=== PATIENT | male | born 1980 | race Caucasian/White ===

== ENCOUNTER 2023-06-03 17:54 | Emergency (ER) | payer SELFPAY ==
--- NOTE | ~2023-06-03 | XR_ITS ---
EXAMINATION: XR toe 4th LT min 2V DATE: 06/03/2023 19:30 INDICATION: Wound to the left fourth toe TECHNIQUE: Dorsal plantar, lateral and 2 oblique views of the left fourth toe were obtained. COMPARISON: None FINDINGS: Alignment is normal. No fracture. There are some flattening of the articular surface at the head of t he second metatarsal without underlying sclerosis or lucency suggestive of chronic osteonecrosis (Rick iberg's infraction). Mild osteoarthritis at the first metatarsophalangeal and a few interphalangeal j oints. Mild soft tissue swelling over the dorsum of the forefoot.. No soft tissue gas or radiopaque f oreign bodies. IMPRESSION: No acute osseous abnormality, soft tissue gas or radiopaque foreign bodies. Reviewed, dictated and finalized at location A.
[2023-06-03 18:03] VITALS: BP 168/105; PULSE 100; RESP 18; TEMP 36.9; O2SAT 100
--- NOTE | 2023-06-03 19:05 | ED.MALEGU ---
HPI - Male Genitourinary General Chief complaint: Urogenital-Male Stated complaint: need a catheter/poison july/ toe wound Time Seen by Provider: 06/03/23 18:35 Source: patient Mode of arrival: ambulatory Limitations: no limitations History of Present Illness HPI Narrative: This is a 43 year old male that presents to the ER with multiple complaints. Reports an itchy rash present on his arms and chest. Reports contact with poison july. He has been using calamine lotion and taking Benadryl with little relief. This has been present over the last week or so. Also reports history of neurogenic bladder. Reports he intermittently needs to straight cath and that he does not have any straight caths currently. He is requesting one. Also reports a wound to the left 4th toe with some redness and swelling surrounding. Denies fevers or drainage. Related Data Allergies Allergy/AdvReac Type Severity Reaction Status Date / Time No Known Allergies Allergy Verified 06/03/23 18:06 Review of Systems Review of Systems: CONSTITUTIONAL: Denies fever GASTROINTESTINAL: Denies abdominal pain, nausea, vomiting SKIN: Reports redness and swelling All systems reviewed & are unremarkable except as noted in HPI and below PMFSH Past Medical History Medical History (Updated 06/03/23 @ 21:13 by Jaylyn Chand PA-C) History of hypertension History of neurogenic bladder Social History Social History (Updated 06/03/23 @ 19:12 by Jaylyn Chand PA-C) Substance use: never Exam Narrative: GENERAL: Well-appearing, well-nourished, and in no acute distress. HEAD: Normocephalic, atraumatic. EYES: EOMI. CHEST: No respiratory distress. HEART: Regular rate EXTREMITIES: Normal range of motion. No edema. SKIN: Warm, dry. Papular, dry, red patches with excoriation to the bilateral arms and chest. Left 4th toe with very small ulceration with mild surrounding redness NEURO: No focal deficits. Alert and oriented x3. PSYCH: Normal mood and affect Course Course Emergency Course: Patient updated on work-up and agrees with plan of care Vital Signs Vital signs: Vital Signs Temperature 98.4 F 06/03/23 18:03 Pulse Rate 100 06/03/23 18:03 Respiratory Rate 18 06/03/23 18:03 Blood Pressure 168/105 H 06/03/23 18:03 Pulse Oximetry 100 06/03/23 18:03 Temperature 98.4 F 06/03/23 18:03 Pulse Rate 100 06/03/23 18:03 Respiratory Rate 18 06/03/23 18:03 Blood Pressure 168/105 H 06/03/23 18:03 Pulse Oximetry 100 06/03/23 18:03 MDM - Male Genitourinary MDM Narrative Medical decision making narrative: Patient presents to the emergency department for multiple complaints. Reports history of neurogenic bladder. Reports he ran out of his straight caths. Requesting one. Also reporting contact dermatitis due to poison july. Reporting a red, swollen toe. Patient instructed on further use of antihistamines for his contact dermatitis. Will also be started on a steroid taper as he is quite uncomfortable. Possible mild cellulitis to the left fourth toe. No concerning findings on x-ray or laboratory evaluation. Instructed to keep the wound clean and dry and apply antibiotic ointment. Will be started on an oral antibiotic as well. He does not have a straight cath as well. He is to follow-up with primary provider. He was given warnings to return to the ER Differential Diagnosis Differential diagnosis: Likely other (Neurogenic bladder, contact dermatitis, cellulitis) Lab Data Attestation: I reviewed the patient's lab results. 06/03/23 19:39 06/03/23 19:39 Labs: Lab Results 06/03/23 Range/Units 19:39 WBC 5.9 (4.5-10.0) K/mm3 RBC 4.84 (4.6-6.20) M/mm3 Hgb 14.9 (14.0-18.0) g/dL Hct 45.1 (42.0-52.0) % MCV 93.2 (80-100) fl MCH 30.8 (26-34) pg MCHC 33.0 (32-36) g/dl RDW 14.8 H (11.5-14.5) % Plt Count 301 (150-375) k/mm3 MPV 9.6 (7.4-10.4) fl Immature Gran
[2023-06-03 19:47] LABS: Basophils Absolute Auto 0.1 K/mm3 (0.0-0.1); Basophils Percent Auto 0.8 % (0.2-1.2); Eosinophils Absolute Auto 0.4 K/mm3 (0-0.3); Eosinophils Percent Auto 6.7 % (0-4.4); Hematocrit 45.1 % (42.0-52.0); Hemoglobin 14.9 g/dL (14.0-18.0); Immature Granulocyte Absolute 0.01 K/mm3 (0.00-0.031); Immature Granulocyte Percent A 0.2 % (0-0.5); Lymphocytes Absolute Auto 2.22 K/mm3 (0.9-3.2); Lymphocytes Percent Auto 37.4 % (18.3-44.2); Mean Corpuscular Hemoglobin 30.8 pg (26-34); Mean Corpuscular Volume 93.2 fl (80-100); Mean Platelet Volume 9.6 fl (7.4-10.4); Monocytes Absolute Auto 0.6 K/mm3 (0.1-0.6); Monocytes Percent Auto 9.4 % (2.6-8.5); Neutrophils Absolute Auto 2.7 K/mm3 (1.3-6.7); Neutrophils Percent Auto 45.5 % (45.5-73.1); Platelet Count Result 301 k/mm3 (150-375); Red Blood Count 4.84 M/mm3 (4.6-6.20); Red Cell Distribution Width 14.8 % (11.5-14.5); White Blood Count 5.9 K/mm3 (4.5-10.0)
[2023-06-03 20:01] LABS: Anion Gap 5 mmol/L (8-16); Blood Urea Nitrogen 21 mg/dL (9-20); CRP 0.7 mg/dL (<1.0); Calcium 9.9 mg/dL (8.4-10.2); Carbon Dioxide 28 mmol/L (22-30); Chloride 106 mmol/L (98-107); Estimated CRCL calculation 132 ml/min; Estimated Glomerular Filt Rate > 60; Glucose 103 mg/dL (65-110); Potassium 3.9 mmol/L (3.4-5.0); Sodium 139 mmol/L (137-145)
[2023-06-03 20:18] LABS: Erythrocyte Sedimentation Rate 8 mm/hr (0-20)
== END 2023-06-03 21:33 | disposition home or self-care (01) ==
PROVIDERS: Emergency Provider Physician Assistant
DX: L23.7 Allergic contact dermatitis due to plants, except food (principal); N31.9 Neuromuscular dysfunction of bladder, unspecified; I10 Essential (primary) hypertension
CPT/HCPCS: 36415; 73660; 80048; 85025; 85652; 86140; 99283

== ENCOUNTER 2023-06-06 21:12 | Emergency (ER) | payer SELFPAY ==
[2023-06-06 21:20] VITALS: BP 172/97; PULSE 84; RESP 14; TEMP 36.5; O2SAT 99
[2023-06-06 22:02] VITALS: PULSE 81; RESP 15; O2SAT 98
--- NOTE | 2023-06-06 22:51 | ED.GENADULT ---
HPI - General Adult General Chief complaint: Urogenital-Male Stated complaint: lost self cath supplies Time Seen by Provider: 06/06/23 22:06 History of Present Illness HPI narrative: This is a 43-year-old male with a neurogenic bladder secondary to spinal cord injury presenting requesting urinary catheter supplies. Patient lost his catheter 2 days ago. He is not complaining of abdominal pain, fever chills back pain or any other problems. He would just like some supplies. Related Data Allergies Allergy/AdvReac Type Severity Reaction Status Date / Time No Known Allergies Allergy Verified 06/03/23 18:06 [facility] Past Medical History Medical History (Updated 06/06/23 @ 22:55 by Florian Gonzales MD) History of hypertension History of neurogenic bladder Social History Social History (Updated 06/03/23 @ 19:12 by Jaylyn Chand PA-C) Substance use: never Exam Narrative: APPEARANCE: No apparent distress. Head: atraumatic. EYES: EOMI, NOSE: Atraumatic NECK: Trachea midline RESPIRATORY: No increased rate of breathing, CTAB CARDIOVASCULAR: RRR, ABDOMINAL: Non-distended MUSCULOSKELETAl: No obvious deformities NEURO: Alert. Moving 4/4 extremities SKIN:: Warm, dry. Normal color PSYCHIATRIC: Normal affect Course Vital Signs Vital signs: Vital Signs Temperature 97.7 F 06/06/23 21:20 Pulse Rate 84 06/06/23 21:20 Respiratory Rate 14 06/06/23 21:20 Blood Pressure 172/97 H 06/06/23 21:20 Pulse Oximetry 99 06/06/23 21:20 Oxygen Delivery Room Air 06/06/23 21:20 Temperature 97.7 F 06/06/23 21:20 Pulse Rate 81 06/06/23 22:02 Respiratory Rate 15 06/06/23 22:02 Blood Pressure 172/97 H 06/06/23 21:20 Pulse Oximetry 98 06/06/23 22:02 Oxygen Delivery Room Air 06/06/23 22:02 Medical Decision Making MDM Narrative Medical decision making narrative: -Course: 43-year-old with neurogenic bladder requesting urinary catheter supplies. These were provided. Patient was discharged. 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 Vital Signs Vital Signs: Vital Signs Temperature 97.7 F 06/06/23 21:20 Pulse Rate 84 06/06/23 21:20 Respiratory Rate 14 06/06/23 21:20 Blood Pressure 172/97 H 06/06/23 21:20 Pulse Oximetry 99 06/06/23 21:20 Oxygen Delivery Room Air 06/06/23 21:20 Temperature 97.7 F 06/06/23 21:20 Pulse Rate 81 06/06/23 22:02 Respiratory Rate 15 06/06/23 22:02 Blood Pressure 172/97 H 06/06/23 21:20 Pulse Oximetry 98 06/06/23 22:02 Oxygen Delivery Room Air 06/06/23 22:02 Discharge Plan Discharge Clinical Impression: Neurogenic bladder Patient Disposition: Home, Self-Care Condition: Stable Instructions: Antibiotic Form, [place] Catheter Placement and Care (ED) Additional Instructions: please return if you develop any complications with your catheterization. Prescriptions: No Action prednisone 10 mg tablet 10 mg PO DAILY Qty: 45 0RF Rx Instructions: 5 tabs daily for 3 days, 4 tabs daily for 3 days, 3 tabs daily for 3 days, 2 tabs daily for 3 days, 1 tab daily for 3 days cephalexin 500 mg capsule 500 mg PO Q6H 7 Days Qty: 28 0RF Follow-up/Referrals: PHYSICIAN,DIFFERENTIAL SPECIALIST [Primary Care Provider] -
[2023-06-06 23:03] VITALS: BP 158/87; PULSE 73; RESP 18; O2SAT 99
== END 2023-06-06 23:04 | disposition home or self-care (01) ==
PROVIDERS: Emergency Provider Emergency Medicine
DX: N31.8 Other neuromuscular dysfunction of bladder (principal); I10 Essential (primary) hypertension
CPT/HCPCS: 99281

== ENCOUNTER 2023-07-13 19:42 | Emergency (ER) | payer SELFPAY ==
--- NOTE | ~2023-07-13 | XR_ITS ---
EXAMINATION: XR foot LT min 3V DATE: 07/13/2023 23:19 INDICATION: Heel callus with fissures TECHNIQUE: Dorsoplantar, two oblique and lateral views of the left foot were obtained. COMPARISON: None. FINDINGS: Bone alignment is normal. No fracture. Mild osteoarthritis at the first metatarsophalangeal and a few of the tarsal metatarsal and interphalangeal joints. Small Achilles and plantar calcaneal spurs. No cortical erosions, osteolysis or periosteal reaction. Soft tissues are unremarkable. IMPRESSION: 1. 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 Reviewed, dictated and finalized at location A. TECH
[2023-07-13 19:49] VITALS: BP 151/99; PULSE 106; RESP 20; TEMP 36.5; O2SAT 99
[2023-07-13 21:49] VITALS: BP 150/98; PULSE 75; RESP 16; TEMP 36.3; O2SAT 98
[2023-07-13 22:52] VITALS: BP 144/104; PULSE 79; RESP 18; O2SAT 99
--- NOTE | 2023-07-13 23:09 | ED.GENADULT ---
HPI - General Adult General Chief complaint: Skin/Abscess/Foreign Body Stated complaint: left foot wound, right thigh wound Time Seen by Provider: 07/13/23 22:56 History of Present Illness HPI narrative: 43-year-old male reports for evaluation for a callus to his left foot with a heel cracked x1 month. States at times he notices a small amount of blood in his socks. He is also reporting a tender erythematous lesion with a scab to the lateral aspect of his proximal right thigh for the past few days. He denies known injury, insect bite or trauma to this area. Denies vomiting, nausea, fevers. He does not have a PCP and recently moved here from [place]. Tetanus is up to date per patient. Related Data Allergies Allergy/AdvReac Type Severity Reaction Status Date / Time No Known Allergies Allergy Verified 06/03/23 18:06 Review of Systems Review of Systems: CONSTITUTIONAL: Denies fever, chills, or sweats. EYES: Denies visual changes, redness, or discharge. ENT: Denies rhinorrhea, congestion, sore throat, or otalgia. CARDIOVASCULAR: Denies chest pain, palpitations, or edema. RESPIRATORY: Denies cough or dyspnea. GASTROINTESTINAL: Denies abdominal pain, nausea, vomiting, or diarrhea. GENITOURINARY: Denies dysuria or hematuria. SKIN: See HPI MUSCULOSKELETAL: Denies back pain, joint pain, or myalgia. NEUROLOGIC: Denies headache, numbness, or weakness. PSYCHIATRIC: Denies anxiety or depression. PMFSH Past Medical History Medical History History of hypertension History of neurogenic bladder Social History Social History Substance use: never Exam Narrative: GENERAL: Well-appearing, well-nourished, and in no acute distress. HEAD: Normocephalic, atraumatic. NECK: Supple. CHEST: Clear to auscultation. No respiratory distress. HEART: Regular rate and rhythm. No murmur heard. Normal peripheral pulses. ABDOMEN: Soft, nontender, nondistended, normal active bowel sounds. EXTREMITIES: Normal range of motion. No edema. SKIN: LLE: xerotic skin to the left heel with multiple fissures and one larger 2cm fissure that extends past the dermis. No surrounding erythema, induration , crepitus or fluctuation. No active drainage or bleeding. No foreign bodies visualized. No tunneling or tracking when probed. DP pulse 2 +. Sensation intact. RLE: 2 0.5cm scabs 0.25cm away from each other with 0.5cm surrounding tender warmth and erythema. No open wounds or active drainage. No induration, fluctuation, or crepitus. NEURO: No focal deficits. Alert and oriented x3 Course Vital Signs Vital signs: Vital Signs Temperature 97.7 F 07/13/23 19:49 Pulse Rate 106 H 07/13/23 19:49 Respiratory Rate 20 07/13/23 19:49 Blood Pressure 151/99 H 07/13/23 19:49 Pulse Oximetry 99 07/13/23 19:49 Oxygen Delivery Room Air 07/13/23 19:49 Temperature 97.3 F L 07/13/23 21:49 Pulse Rate 79 07/13/23 22:52 Respiratory Rate 18 07/13/23 22:52 Blood Pressure 144/104 H 07/13/23 22:52 Pulse Oximetry 99 07/13/23 22:52 Oxygen Delivery Room Air 07/13/23 19:49 Medical Decision Making [facility] Narrative Medical decision making narrative: 43-year-old male reports for evaluation for heel calluses with a large fissure x1 month and and erythematous and tender lesion to the right lateral side for the past few days. See HPI for further history. Initial vital significant for blood pressure 151/99 with a heart rate of 106 which has since improved. He is afebrile. Exam is significant for the above. X-ray of the left foot shows from polyarticular osteoarthritis left forefoot and midfoot. No evidence of foreign body. Osteomyelitis very less likely given no signs or symptoms of infection surrounding the wound. Lesion to the lateral aspect of the right thigh consistent with a small area of cellulitis. No fluctuat
[2023-07-14] MEDS: CEPHALEXIN 500 MG CAPSULE PO (00:34)
[2023-07-14 00:35] VITALS: BP 140/98; PULSE 86; RESP 16; O2SAT 100
== END 2023-07-14 00:36 | disposition home or self-care (01) ==
PROVIDERS: Emergency Provider Physician Assistant
DX: L84 Corns and callosities (principal); L03.115 Cellulitis of right lower limb; R23.4 Changes in skin texture; I10 Essential (primary) hypertension; N31.9 Neuromuscular dysfunction of bladder, unspecified
CPT/HCPCS: 73630; 99283; A9270